=== PATIENT | male | born 1960 | race Caucasian/White ===

== ENCOUNTER 2017-06-23 07:01 | Outpatient (RCR) | payer OTHER, SELFPAY ==
[2017-06-23 08:49] LABS: Cholesterol 174 mg/dL (200); High Density Lipoprotein 40 mg/dL; Triglycerides 171 mg/dL; Very Low Density Lipoprotein 34 mg/dL (5-40)
== END 2017-06-23 07:02 | disposition home or self-care (01) ==
LOC: LAB 07:01
PROVIDERS: Family Provider Family Medicine; PCP Family Medicine; Visit Provider Family Medicine
DX: Z13.220 Encounter for screening for lipoid disorders (principal)
CPT/HCPCS: 36415; 80061

== ENCOUNTER → 2018-09-14 10:03 | Outpatient (CLI) | payer OTHER, SELFPAY ==
--- NOTE | 2018-09-14 10:28 | RAD_ITS ---
HISTORY: NECK PAIN COMPARISON: 05/17/2011 FINDINGS: XR Spine Cervical 2 views Mild straightening of the cervical spine. Cervical vertebra are normal in height. No fracture or suspicious bony lesion. C4-5 through C6-7 disc space narrowing accompanied by anterior endplate spurring. Disc space narrowing has progressed compared to previous. Posterior elements appear intact. No spondylolisthesis. RAD/Cerv Spine 2 or 3 Views IMPRESSION: 1. C4-5 through C6-7 degenerative disc disease and spondylosis with progression of degenerative change compared to the 2011 exam. 2. No acute disease. at 0734 Reported and signed by: Abundio Hoang MD Electronically Signed: Abundio Hoang, at 7:33 EDT Tel , Service support ,
== END ==
PROVIDERS: Family Provider Family Medicine; PCP Family Medicine; Referring Provider Anesthesiology Pain Medicine; Visit Provider Anesthesiology Pain Medicine
DX: M54.2 Cervicalgia (principal)
CPT/HCPCS: 72040

== ENCOUNTER → 2018-10-10 | Outpatient (CLI) | payer OTHER, SELFPAY ==
[2017-08-01 09:10] VITALS: BMI 24.9
[2018-10-10 12:24] LABS: Color, Urine Yellow (Yellow); Glucose, Dipstick Normal (Normal); Ketone-Dipstick Negative (Negative); Leukocyte Esterase-Dipstick Negative /ul (Negative); Nitrite-Dipstick Negative (Negative); Occult Blood-Urine Negative /ul (Negative); Protein-Dipstick Negative (Negative); Urine Clarity Clear (Clear); Urine Urobilinogen Normal (Normal)
[2018-10-10 12:37] LABS: Urine Bilirubin Dipstick 1 mg/dL (Negative)
== END | disposition home or self-care (01) ==
LOC: LAB 07:41 → LAB.FUTURE 10-12 06:08
PROVIDERS: Family Provider Family Medicine; PCP Family Medicine; Referring Provider Family Medicine; Visit Provider Family Medicine
DX: R35.1 Nocturia (principal)
CPT/HCPCS: 81002

== ENCOUNTER → 2018-10-13 | Outpatient (CLI) | payer OTHER, SELFPAY ==
[2017-08-01 09:10] VITALS: BMI 24.9
[2018-10-13 11:23] LABS: PSA,Total - Annual Screen 0.92 ng/mL (0.00-4.00)
== END | disposition home or self-care (01) ==
LOC: LAB 10:38
PROVIDERS: Family Provider Family Medicine; PCP Family Medicine; Referring Provider Family Medicine; Visit Provider Family Medicine
DX: R35.1 Nocturia (principal)
CPT/HCPCS: 36415; 84153; G0103

== ENCOUNTER → 2018-10-26 | Outpatient (CLI) | payer OTHER, SELFPAY ==
--- NOTE | 2018-10-26 15:37 | MRI_ITS ---
STUDY: MRI CERVICAL SPINE WITHOUT CONTRAST REASON FOR EXAM: Male, 57 years old. Neck pain radiating to right arm TECHNIQUE: Standardized fat and water weighted pulse sequences were obtained in the sagittal and axial planes. COMPARISON: CT of the cervical spine May 17, 2011 FINDINGS: Normal foramen magnum and brainstem-cervical cord junction. Normal craniovertebral junction. Normal anterior atlantoaxial articulation. Normal odontoid process. Normal cervical lordosis. Normal vertebral bodies and posterior osseous elements. C2-3: Normal endplates. Normal disc height, signal and morphology. Normal central canal and intervertebral neural foramina. C3-4: Normal endplates. Normal disc height, signal and morphology. Normal central canal and intervertebral neural foramina. C4-5: Mild endplate spurring.. Normal disc height, signal and morphology. Normal central canal. Moderate to severe bilateral neuroforaminal stenosis secondary to bony hypertrophy. C5-6: Minor endplate spurring.. Normal disc height, signal and minor bulging disc osteophyte complex. Normal central canal. Moderate right neuroforaminal encroachment secondary to bony hypertrophy Moderate to severe left neuroforaminal stenosis secondary to bony hypertrophy C6-7: Normal endplates. Normal disc height, signal and minor bulging disc osteophyte complex.. Normal central canal. Mild right neuroforaminal stenosis secondary to bony hypertrophy and moderate to severe narrowing on the left. C7-T1: Normal endplates. Normal disc height, signal and morphology. Normal central canal. Normal bilateral neuroforamina Normal cervical cord. Normal visualized soft tissue structures. MRI/Spine Cervical (Routine) IMPRESSION: No evidence for acute fracture or subluxation.. Spondylosis and multilevel neuroforaminal stenosis secondary to bony hypertrophy Electronically Signed: Silver Griffin MD at 17:20 EDT , Service support ,
== END | disposition home or self-care (01) ==
PROVIDERS: Family Provider Family Medicine; PCP Family Medicine; Referring Provider Anesthesiology Pain Medicine; Visit Provider Anesthesiology Pain Medicine
DX: M54.2 Cervicalgia (principal); M79.603 Pain in arm, unspecified
CPT/HCPCS: 72141

== ENCOUNTER → 2019-02-12 | Outpatient (CLI) | payer OTHER, SELFPAY ==
[2019-02-12 09:06] LABS: Vitamin B12 1148 pg/mL (211-911); Vitamin D,25 Hydroxy 29.8 ng/mL (29.95-100.01)
== END | disposition home or self-care (01) ==
PROVIDERS: Family Provider Family Medicine; PCP Family Medicine; Referring Provider Family Medicine; Visit Provider Family Medicine
DX: E55.9 Vitamin D deficiency, unspecified (principal); E53.8 Deficiency of other specified B group vitamins
CPT/HCPCS: 36415; 82306; 82607

== ENCOUNTER → 2019-05-04 07:31 | Outpatient (CLI) | payer OTHER, SELFPAY ==
[2017-08-01 09:10] VITALS: BMI 24.9
[2019-05-04 09:36] LABS: Absolute Lymphocyte Count 1.39 X10^3/uL (0.83-4.51); Absolute Neutrophil Count 3.5 X10^3/uL (2.0-7.7); Basophil# 0.04 X10^3/uL; Basophil% 0.7 % (0-1); Eosinophil# 0.32 X10^3/uL; Eosinophils% 5.7 % (0-5); Hematocrit 44.5 % (40-54); Hemoglobin 14.7 g/dL (13.0-16.5); Lymphocyte # 1.39 X10^3/ul (4.0); Lymphocyte % 24.9 % (19-41); Mean Corpuscular Hgb 31.8 pg (27.0-32.0); Mean Corpuscular Volume 96.3 fL (80-94); Mean Platelet Vol. 10.7 fl (6.2-12.0); Monocyte# 0.35 X10^3/uL; Monocyte% 6.3 % (0-10); NRBC Flagged by Analyzer 0 % (0-5); Neutrophil # 3.48 X10^3/uL (2.7-7.7); Neutrophil % 62.2 % (47-70); Platelet Count 226 K/mm3 (150-450); Red Blood Count 4.62 M/mm3 (4.6-6.2); White Blood Count 5.6 K/mm3 (4.4-11.0)
[2019-05-04 09:54] LABS: Cholesterol 173 mg/dL (200); Glucose 89 mg/dL (74-106); High Density Lipoprotein 39 mg/dL; Triglycerides 85 mg/dL; Very Low Density Lipoprotein 17 mg/dL (5-40)
[2019-05-04 10:00] LABS: Vitamin D,25 Hydroxy 42.6 ng/mL (29.95-100.01)
== END ==
PROVIDERS: Family Provider Family Medicine; PCP Family Medicine; Referring Provider Family Medicine; Visit Provider Family Medicine
DX: D72.829 Elevated white blood cell count, unspecified (principal); E55.9 Vitamin D deficiency, unspecified; E78.5 Hyperlipidemia, unspecified
CPT/HCPCS: 36415; 80061; 82306; 82947; 85025

== ENCOUNTER → 2019-11-16 10:01 | Outpatient (CLI) | payer OTHER, SELFPAY ==
[2017-08-01 09:10] VITALS: BMI 24.9
[2019-11-16 11:28] LABS: PSA,Total- Diagnostic 0.88 ng/mL (0.0-4.0)
== END ==
PROVIDERS: PCP Family Medicine; Referring Provider Family Medicine; Visit Provider Family Medicine
DX: R39.11 Hesitancy of micturition (principal)
CPT/HCPCS: 36415; 84153

== ENCOUNTER → 2020-04-04 12:49 | Outpatient (CLI) | payer OTHER, SELFPAY ==
--- NOTE | 2020-04-04 12:57 | MRI_ITS ---
STUDY: MRI CERVICAL SPINE WITH AND WITHOUT CONTRAST REASON FOR EXAM: Male, 59 years old. RIGHT neck pain x 15years with progressing severity TECHNIQUE: Standardized fat and water weighted pulse sequences were obtained in the sagittal and axial following administration of 17ml Dotarem via IV. COMPARISON: 10/26/2018. FINDINGS: Quality: Adequate. Multiple sequences are degraded by patient motion. Normal foramen magnum and brainstem-cervical cord junction. Normal craniovertebral junction. Normal anterior atlantoaxial articulation. Normal odontoid process. Normal cervical lordosis. Normal vertebral bodies and posterior osseous elements. C2-3: Normal endplates. Normal disc height, signal and morphology. Normal central canal and intervertebral neural foramina. C3-4: Normal endplates. Normal disc height, signal and morphology. Normal central canal. Mild foraminal encroachment due to spurring. C4-5: Normal endplates. Normal disc height, signal and morphology. Normal central canal. Moderate foraminal stenosis due to uncinate hypertrophy. C5-6: Normal endplates. Disc space narrowing. Mild, noncompressive spondylotic bar. Severe bilateral foraminal stenosis due to uncinate hypertrophy. C6-7: Normal endplates. Disc space narrowing. Normal central canal. Severe left foraminal stenosis due to uncinate hypertrophy. C7-T1: Normal endplates. Normal disc height, signal and morphology. Normal central canal and intervertebral neural foramina. No enhancing lesion. Normal cervical cord. Normal visualized soft tissue structures. Moderate mucosal thickening in the left maxillary sinus. MRI/Spine Cervical W/WO Contrast IMPRESSION: 1. Moderate to severe foraminal stenosis from C4-C5 through C6-C7. 2. Additional degenerative changes detailed above. 3. Mild chronic sinusitis. Electronically Signed: Maureen Verdin MD at 21:56 EDT Tel , Service support ,
== END ==
PROVIDERS: PCP Family Medicine; Referring Provider Anesthesiology Pain Medicine; Visit Provider Anesthesiology Pain Medicine
DX: M50.30 Other cervical disc degeneration, unspecified cervical region (principal); M50.123 Cervical disc disorder at C6-C7 level with radiculopathy
CPT/HCPCS: 72156; A9575

== ENCOUNTER → 2020-09-23 07:43 | Outpatient (CLI) | payer OTHER, SELFPAY ==
[2017-08-01 09:10] VITALS: BMI 24.9
--- NOTE | 2020-09-23 07:48 | RAD_ITS ---
STUDY: X-RAY - RIGHT FOOT CLINICAL: Male, 59 years old. DEFORMITY/PAIN OF 1ST METATARSAL X 2 YEARS TECHNIQUE: 3 view(s) of the foot. COMPARISON: None. FINDINGS: Normal talus, calcaneus, and tarsal bones. Small plantar posterior calcaneal enthesophytes. Normal visualized subtalar, talonavicular, calcaneocuboid, tarsal and tarsometatarsal articulations. Normal metatarsi. There is degenerative arthrosis of the metatarsophalangeal joint of the hallux . Normal tibial and fibular sesamoid bones. Normal interphalangeal joint of the great toe. Normal phalanges of the great toe. Normal second through fifth metatarsophalangeal joints. Normal interphalangeal joints and phalanges of the lesser toes. The soft tissue structures are unremarkable. RAD/Foot min 3 Views IMPRESSION: Severe first metatarsophalangeal joint arthrosis. Electronically Signed: Evan Villa MD at 11:37 EDT Tel , Service support ,
[2020-09-23 08:49] LABS: PSA,Total - Annual Screen 1.02 ng/mL (0.00-4.00)
[2020-09-25 10:00] LABS: Vitamin D,25 Hydroxy 47.7 ng/mL
== END ==
PROVIDERS: PCP Family Medicine; Referring Provider Family Medicine; Visit Provider Family Medicine
DX: M79.671 Pain in right foot (principal); Z12.5 Encounter for screening for malignant neoplasm of prostate; E55.9 Vitamin D deficiency, unspecified
CPT/HCPCS: 36415; 73630; 82306; 84153; G0103

== ENCOUNTER → 2021-01-20 08:52 | Outpatient (CLI) | payer OTHER, SELFPAY ==
[2021-01-20 09:24] LABS: Absolute Lymphocyte Count 1.93 X10^3/uL (0.83-4.51); Absolute Neutrophil Count 4.8 X10^3/uL (2.0-7.7); Basophil# 0.05 X10^3/uL; Basophil% 0.7 % (0-1); Eosinophil# 0.16 X10^3/uL; Eosinophils% 2.1 % (0-5); Hemoglobin 14.6 g/dL (13.0-16.5); Lymphocyte # 1.93 X10^3/ul (0.83-4.51); Lymphocyte % 25.9 % (19-41); Mean Corpuscular Volume 97.3 fL (80-94); Mean Platelet Vol. 10.7 fl (6.2-12.0); Monocyte% 6.7 % (0-10); NRBC Flagged by Analyzer 0 % (0-5); Neutrophil # 4.78 X10^3/uL (2.7-7.7); Neutrophil % 64.2 % (47-70); Platelet Count 202 K/mm3 (150-450); RBC Distribution Width CV 12.5 % (11.6-14.6); RBC Distribution Width SD 44.9 fl (35.1-43.9); Red Blood Count 4.42 M/mm3 (4.6-6.2); White Blood Count 7.5 K/mm3 (4.4-11.0)
[2021-01-20 09:43] LABS: ALB/GLOB Ratio 1.5 RATIO (0.9-2.4); AST(SGOT) 23 U/L (15-37); Alanine Aminotransfer ALT/SGPT 40 U/L (16-61); Albumin, Serum 4.2 g/dL (3.2-5.0); Alkaline Phosphatase 88 U/L (45-117); Anion Gap 5 (5-15); BUN 18 mg/dL (7-18); BUN/Creat Ratio 17.6 RATIO (10-20); Calcium,Total 8.6 mg/dL (8.5-10.1); Chloride 107 mmol/L (98-107); Cholesterol 152 mg/dL (200); Creatinine, Serum 1.02 mg/dL (0.70-1.30); EST Glomerular Filtration Rate 79 mL/min (>60); Est Glom Filt Rate - Afr Amer 96 mL/min (>60); Globulin 2.8 g/dL (2.2-4.2); Glucose 96 mg/dL (74-106); High Density Lipoprotein 49 mg/dL; Potassium 3.8 mmol/L (3.5-5.1); Sodium Level 140 mmol/L (136-145); Thyroid Stim Hormone (TSH) 2.64 uIU/mL (0.358-3.74); Triglycerides 77 mg/dL; Very Low Density Lipoprotein 15 mg/dL (5-40)
[2021-01-22 09:12] LABS: Vitamin B12 1114 pg/mL (211-911)
== END ==
LOC: MTLAB 08:56 → LAB 01-22 06:29
PROVIDERS: PCP Family Medicine; Referring Provider Family Medicine; Visit Provider Family Medicine
DX: R63.4 Abnormal weight loss (principal); R53.83 Other fatigue; E55.9 Vitamin D deficiency, unspecified
CPT/HCPCS: 36415; 80053; 80061; 82607; 84443; 85025

== ENCOUNTER 2021-08-09 15:54 | Outpatient (CLI) | payer OTHER, SELFPAY ==
--- NOTE | 2021-08-09 16:06 | RAD_ITS ---
STUDY: X-RAY - CERVICAL SPINE REASON FOR EXAM: Male, 60 years old. NECK PAIN TECHNIQUE: XR Spine Cervical 2 or 3 Views COMPARISON: None FINDINGS: Normal anterior atlantoaxial articulation. No acute findings of the odontoid process. There is straightening of the normal cervical lordosis. There is multi-level endplate spondylosis. There is multi-level degenerative disc disease with multilevel disc space narrowing. There is multi-level osseous foraminal stenosis. The soft tissue structures are unremarkable. RAD/Cerv Spine 2 or 3 Views IMPRESSION: There are degenerative changes as noted above. There is mild straightening of the normal cervical lordosis. This can suggest neck strain. Electronically Signed: Eugenio Henry MD at 15:45 EST ,
== END 2021-08-09 23:59 | disposition home or self-care (01) ==
PROVIDERS: PCP Family Medicine; Referring Provider Anesthesiology Pain Medicine; Visit Provider Anesthesiology Pain Medicine
DX: M54.2 Cervicalgia (principal)
CPT/HCPCS: 72040

== ENCOUNTER 2021-09-21 06:04 | Outpatient (CLI) | payer OTHER, SELFPAY ==
[2021-09-21 07:46] LABS: Cholesterol 157 mg/dL (200); Glucose 92 mg/dL (74-106); High Density Lipoprotein 39 mg/dL; Triglycerides 120 mg/dL; Very Low Density Lipoprotein 24 mg/dL (5-40)
== END 2021-09-21 23:59 | disposition home or self-care (01) ==
LOC: LAB 06:04
PROVIDERS: PCP Family Medicine; Referring Provider Family Medicine; Visit Provider Family Medicine
DX: Z13.1 Encounter for screening for diabetes mellitus (principal); Z13.220 Encounter for screening for lipoid disorders
CPT/HCPCS: 36415; 80061; 82947

== ENCOUNTER → 2021-10-30 | Outpatient (CLI) | payer OTHER, SELFPAY ==
[2021-10-30 16:04] LABS: Anion Gap 4 (5-15); BUN 15 mg/dL (7-18); BUN/Creat Ratio 15.9 RATIO (10-20); Calcium,Total 8.7 mg/dL (8.5-10.1); Chloride 108 mmol/L (98-107); Creatinine, Serum 0.94 mg/dL (0.70-1.30); EST Glomerular Filtration Rate 86 mL/min (>60); Est Glom Filt Rate - Afr Amer 105 mL/min (>60); Glucose 81 mg/dL (74-106); Magnesium 2.3 mg/dL (1.6-2.6); Sodium Level 141 mmol/L (136-145)
== END | disposition home or self-care (01) ==
LOC: LAB.FUTURE 14:43 → LAB 10-31 07:07
PROVIDERS: PCP Family Medicine; Visit Provider Family Medicine
DX: R25.2 Cramp and spasm (principal)
CPT/HCPCS: 36415; 80048; 83735

== ENCOUNTER → 2022-10-21 | Outpatient (CLI) | payer OTHER, SELFPAY ==
[2022-10-21 07:58] LABS: Absolute Lymphocyte Count 1.62 X10^3/uL (0.83-4.51); Absolute Neutrophil Count 2.9 X10^3/uL (2.0-7.7); Basophil# 0.06 X10^3/uL; Basophil% 1.1 % (0-1); Eosinophil# 0.41 X10^3/uL; Eosinophils% 7.6 % (0-5); Hematocrit 43.3 % (40-54); Hemoglobin 14.4 g/dL (13.0-16.5); Lymphocyte # 1.62 X10^3/ul (0.83-4.51); Lymphocyte % 30.2 % (19-41); Mean Corp Hgb Conc 33.3 g/dL (32-36); Mean Corpuscular Hgb 31.6 pg (27.0-32.0); Mean Corpuscular Volume 95.2 fL (80-94); Mean Platelet Vol. 10.3 fl (6.2-12.0); Monocyte# 0.39 X10^3/uL; Monocyte% 7.3 % (0-10); NRBC Flagged by Analyzer 0 % (0-5); Neutrophil # 2.87 X10^3/uL (2.7-7.7); Neutrophil % 53.4 % (47-70); Platelet Count 203 K/mm3 (150-450); RBC Distribution Width CV 12.2 % (11.6-14.6); RBC Distribution Width SD 42.7 fl (35.1-43.9); Red Blood Count 4.55 M/mm3 (4.6-6.2); White Blood Count 5.4 K/mm3 (4.4-11.0)
[2022-10-21 08:22] LABS: Vitamin D,25 Hydroxy 41.6 ng/mL
[2022-10-21 08:24] LABS: ALB/GLOB Ratio 1.4 RATIO (0.9-2.4); AST(SGOT) 29 U/L (15-37); Alanine Aminotransfer ALT/SGPT 34 U/L (16-61); Alkaline Phosphatase 92 U/L (45-117); Anion Gap 4 (5-15); BUN 25 mg/dL (7-18); BUN/Creat Ratio 26.1 RATIO (10-20); Calcium,Total 8.9 mg/dL (8.5-10.1); Chloride 110 mmol/L (98-107); Cholesterol 172 mg/dL (200); Creatinine, Serum 0.96 mg/dL (0.70-1.30); EST Glomerular Filtration Rate 85 mL/min (>60); Est Glom Filt Rate - Afr Amer 102 mL/min (>60); Globulin 2.8 g/dL (2.2-4.2); Glucose 92 mg/dL (74-106); High Density Lipoprotein 43 mg/dL; Magnesium 2.3 mg/dL (1.6-2.6); Protein, Total 6.8 g/dL (6.4-8.2); Sodium Level 143 mmol/L (136-145); Triglycerides 99 mg/dL; Very Low Density Lipoprotein 20 mg/dL (5-40)
== END | disposition home or self-care (01) ==
LOC: LAB 06:58
PROVIDERS: PCP Nurse Practitioner Family; Referring Provider Nurse Practitioner Family; Visit Provider Nurse Practitioner Family
DX: Z00.00 Encounter for general adult medical examination without abnormal findings (principal); E55.9 Vitamin D deficiency, unspecified; E61.2 Magnesium deficiency; E78.5 Hyperlipidemia, unspecified; Z12.5 Encounter for screening for malignant neoplasm of prostate
CPT/HCPCS: 36415; 80053; 80061; 82306; 83735; 84153; 85025; G0103

== ENCOUNTER 2023-01-13 21:33 | Emergency (ER) | payer OTHER, SELFPAY ==
[2023-01-13 21:35] VITALS: BP 119/85; PULSE 78; RESP 18; TEMP 36.4; O2SAT 98; BMI 24.6
--- NOTE | 2023-01-13 22:46 | EDS_ITS ---
HPI <Dr. Prudencio Cortez MD - Last Filed: 01/14/23 02:02> History of Present Illness Chief Complaint: Laceration Informant: patient Narrative Narrative: Patient sustained a laceration to the left lower leg accidentally while swinging a yard paint brush maker. Tetanus Immunization: Unknown [facility] <Dr. Prudencio Cortez MD - Last Filed: 01/14/23 02:02> PFSH Medical History Basal cell carcinoma Chronic neck pain Foraminal stenosis of cervical region Hx of nasal polyp Home Medications acyclovir 400 mg tablet 400 mg PO TID PRN 10/11/22 [History Last Taken Unknown] cholecalciferol (vitamin D3) 125 mcg (5,000 unit) capsule 125 mcg PO DAILY 10/11/22 [History Last Taken Unknown] diclofenac sodium 1 % topical gel (Arthritis Pain (diclofenac)) 2 g topical ONCE 10/11/22 [History Last Taken Unknown] methocarbamol 750 mg tablet 750 mg PO Q6H PRN 10/11/22 [History Last Taken Unknown] turmeric root extract 500 mg tablet 500 mg PO DAILY 10/11/22 [History Last Taken Unknown] Allergy/AdvReac Type Severity Reaction Status Date / Time No Known Allergies Allergy Verified 01/13/23 21:35 Family History (Updated 10/11/22 @ 12:40 by Yumiko Manjarrez) Father Glioblastoma CAD (coronary artery disease) Surgical History (Updated 10/11/22 @ 12:39 by Yumiko Manjarrez) History of colonoscopy History of nasal septoplasty History of open reduction and internal fixation (ORIF) procedure Hx of tonsillectomy Social History household members: spouse current occupational status: employed Smoking Status: Former smoker ROS <Dr. Prudencio Cortez MD - Last Filed: 01/14/23 02:02> ROS ED Constitutional Constitutional ED: Denies chills or fever(s) Musculoskeletal Musculoskeletal: Reports extremity pain; Denies neck pain Integumentary Reports wounds; Denies Abrasions or rash Neurologic Neurologic: Denies paresthesias or weakness EXAM <Dr. Prudencio Cortez MD - Last Filed: 01/14/23 02:02> Physical Exam Const Vital Signs: 01/13/23 21:35 Temperature 97.6 F L Temperature Source Temporal Pulse Rate 78 Respiratory Rate 18 Blood Pressure 119/85 H Blood Pressure Mean 96 Pulse Ox 98 Oxygen Delivery Method Room Air Positive well nourished and well developed General Appearance ED: well developed and NAD Neck full ROM and supple Back/Spine normal ROM and normal to inspection Extremity full ROM Extremity Narrative: 2.8 cm curvilinear full-thickness but just beyond the dermis laceration anterior left lower leg proximal to the ankle. No other structures exposed, no bony tenderness, full range of motion of the ankle. Minimal bleeding. General Extremety ED: Negative for weight-bearing difficulty General Extremity: Negative for weight-bearing difficulty Neuro oriented x3, no focal motor deficits and no sensory deficits noted Sensorium / Orientation: alert Psych mental status grossly normal and thought process normal Skin Skin Narrative: LLE lac, see above for details. Rashes: no rashes <Dr. Ian Blanco MD - Last Filed: 01/13/23 23:02> Physical Exam Const Vital Signs: 01/13/23 21:35 Temperature 97.6 F L Temperature Source Temporal Pulse Rate 78 Respiratory Rate 18 Blood Pressure 119/85 H Blood Pressure Mean 96 Pulse Ox 98 Oxygen Delivery Method Room Air MDM <Dr. Prudencio Cortez MD - Last Filed: 01/14/23 02:02> MDM MDM Narrative Medical decision making narrative: Laceration repaired see the procedure note. Given appropriate discharge instructions regarding care and suture removal. Procedures <Dr. Ian Blanco MD - Last Filed: 01/13/23 23:02> Other Procedures Procedure(s): Patient has a laceration distal anterior leg. Curvilinear and gaping. Wound was anesthetized with 1% lidocaine by local infiltration. Wound was cleansed with surgical eyes and normal saline. 7 simple interrupted sutures placed using 4-0 Ethilon with good cosmesis hemostasis. Total length of laceration 2.8 cm. Discharge Plan Triage Chief Complaint: Laceration ED Provider: Prudencio Cortze Dx/Rx/DC Orders Clinical Impression: [id number] (DTP) vaccination, Laceration of left lower leg Instructions: Tdap Vaccine, ED Laceration: All Closures Prescriptions: No Action acyclovir 400 mg tablet 400 mg PO TID PRN diclofenac sodium [Arthritis Pain (diclofenac)] 1 % gel 2 g topical ONCE Rx Instructions: apply to single elbow, wrist or hand; for hand includes palm/fingers/back of hand methocarbamol 750 mg tablet 750 mg PO Q6H PRN turmeric root extract 500 mg tablet 500 mg PO DAILY cholecalciferol (vitamin D3) 125 mcg (5,000 unit) capsule 125 mcg PO DAILY Primary Care Provider: Shelia Jimenez Referrals: Shelia Jimenez, PHYSICIAN'S AIDE-C [Primary Care Provider] - 10 Day for suture removal Disposition Disposition: Home, Self Care Discharge Date/Time: 01/13/23 23:42
[2023-01-13] MEDS: Diphth,Pertuss(Acell),Tet Vac 0.5 ML Vial IM (23:18)
== END 2023-01-13 23:42 | disposition home or self-care (01) ==
PROVIDERS: Emergency Provider Emergency Medicine; PCP Nurse Practitioner Family; Visit Provider Emergency Medicine
DX: S81.812A Laceration without foreign body, left lower leg, initial encounter (principal); Z87.891 Personal history of nicotine dependence; Z23 Encounter for immunization; W27.1XXA Contact with garden tool, initial encounter
CPT/HCPCS: 12002; 90471; 90715; 99284

== ENCOUNTER 2023-04-21 16:30 | Outpatient (RCR) | payer OTHER, SELFPAY ==
--- NOTE | 2022-10-22 13:57 | HP.PTEVAL_ITS ---
Patient's Visit Information BRIANA BURTON is a 61 year old M referred to Physical Therapy by JEFF Paul with a diagnosis of neck pain. Date of Evaluation: 10/17/22 Physical Therapist: Cory Romero DPT - Visit Plan Frequency: 2x /Week Duration: 4 Weeks Plan: Start with DN throughout cervical spine, progress some light cervical exercises to reduce stress with gym exercises. - Subjective Pt. is here today for his initial evaluation with diagnosis of neck pain. Pt. reports having cervical spine pain for a few years now, going on 10 years. He reports being told that he would need surgery, but has been trying to avoid this. He has changed his diet and exercises which has helped. He is here today with questions about exercises and DN to reduce his symptoms. He reports any lifting seems to increase his symptoms. Increases pain: prolonged sitting, lifting, exercises. He has done injections that were initially helping, but has been less and less helpful more recently. Pt. is hopeful to reduce symptoms in order to tolerate sitting and standing at work. - Pain Cervical spine Pain Intensity (Out of 10): 2 Pain Intensity Range: 0, 6 - Objective POSTURE: Pt. has slight FH posture. Pt. has normal shoulder positioning. Pt. is able to sitting to good posture. PALPATION: Pt. has tenderness along B cervical erector spinea and B UT regions. This does trail into his levator scapulae as well. ROM: CERVICAL SPINE: flexion min loss increase nW, ext min loss increase NW, SB min loss NE, rotation min loss increase NW B. Pt .has full B shoulder ROM without increase in symptoms. MMT: Pt. has full strength of B shoulders without increase in symptoms. Pt. does have some pain with UT testing and with scapular testing 4+/5 through the rest. - Balance/Special Test Scores Oswestry Neck Score: 21 - Goals Goal 1:: LTG: Pt. to be I with HEP. Goal Time Frame: 4-6 Weeks Goal 2:: STG: Pt. to tolerate all work activities with out increase in neck pain. Goal Time Frame: 2-4 Weeks Goal 3:: LTG: Pt. to sleep without increase in symptoms of neck and scapular region. Goal Time Frame: 4-6 Weeks Goal 4:: LTG: pt. to resume and tolerate all gym exercises without increase in symptoms. Goal Time Frame: 4-6 Weeks - Rehabilitation Potential Physical Therapy Diagnosis: Pt. has signs and symptoms consistent with cervical spine pain. He has some radicular symptoms in to his UT region, but for the most part he has pain in his neck that is worsened with activities that cause stress to his spine. He would benefit from PT to reduce muscle tightness and work on progressive tolerance to exercises. Rehabilitation Potential: Good - Anticipated Interventions Patient/Client Instruction: Educate patient on: Condition, Plan of Care, Risk Factors, Benefits of Fitness Program For the Purpose of:: To foster healthy habits, To improve decision making, To facilitate caregiver knowledge, To improve self management, To prevent re- injury, To improve ability to perform tasks related to life management, To improve tolerance to ADL's Therapeutic Exercise to Include: Strength training, Power training, Passive ROM, Active ROM, Stefani Exercises, Scapular Strength/Stabilization For the Purpose of:: To decrease pain, To decrease swelling/inflammation, To increase ROM, To improve nutrient delivery to tissue Manual Therapy Techniques to Include: Mobilization, Passive ROM, Functional dry needling, Soft tissue mobilization For the Purpose of:: To decrease pain, To decrease swelling/inflammation, To increase ROM, To improve nutrient delivery to tissue, To increase oxygenation perfusion, To improve muscle performance and motor function Thank you for the opportunity to evaluate your patient. For Medicare and Medicare HMO plans, please review the plan of care and approve it. It will need to be FAXED BACK to us at [phone] for Medicare purposes. For Medicare only, by signing this I certify the plan of care. Please let me know if there are questions or concerns regarding this plan of care. Physician Signature: Date:
== END 2023-04-21 19:00 | disposition home or self-care (01) ==
LOC: PT 16:30
PROVIDERS: PCP Nurse Practitioner Family; Visit Provider Nurse Practitioner Family
DX: M48.02 Spinal stenosis, cervical region (principal); M54.2 Cervicalgia; G89.29 Other chronic pain
CPT/HCPCS: 97110; 97140; 97161

== ENCOUNTER 2023-06-28 09:13 | Emergency (ER) | payer OTHER, SELFPAY ==
[2023-06-28 09:14] VITALS: BP 135/88; PULSE 76; RESP 18; TEMP 36.4; O2SAT 98; BMI 23.5
[2023-06-28] MEDS: Fluorescein 1 MG STRIP 1 STRIP EACH EYE (09:55)
[2023-06-28] MEDS: Tetracaine 0.5% Ophthalmic Bottle 1 DRP EACH EYE (09:55)
--- OUTSIDE RECORDS SUMMARY | 2023-06-28 10:04 | XMS RPT_ITS | CCD ---
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 Role Phone Derrick Craig (Hist) Primary Care Provider Un available HANK PRICE CNP Attending HANK Scales CNP Primary Care HANK Scales CNP Admitting Unavailabl e Allergies Allergy Classification Reported Allergen(s) Allergy Type Date of Onset Reaction(s) Facility (2 sources) Environmental allergies [Other] Propensity to adverse reactions [facility] Medications Completed/Discontinued Medications Medication Drug Class(es) Dates Sig (Normalized) Sig (Original) [id number] 200 actuat albuterol 0.09 mg/actuat metered dose inhaler (1 source) beta2-Adrenergic Agonist Start: 08-15-2008 take 2 puff(s) by inhalation every four hours as needed for cough albuterol sulfate(PROVENTIL HFA 90 MCG/ACTUATION AEROSOL INHALER) 2 puffs every 4 hours as needed for cough, wheezing or shortness of breath. 1 2 08/15/2008 Active Problems Active Problems Problem Classification Problem Date Documented Date Episodic/Chronic External cause codes: Natural/environment (1 source) Bitten or stung by nonvenomous insect and other nonvenomous arthropods, initial encounter; Translations: [Other, multiple, and unspecified sites, insect bite, nonvenomous, without mention of infection(919.4)] Onset: 01-07-2008 01-07-2008 Other and unspecified benign neoplasm (2 sources) Dysplastic nevus of trunk; Translations: [Atypical nevus of back] Onset: 01-31-2013 01-31-2013 Other connective tissue disease (3 sources) Enthesopathy of hip region; Translations: [Other specified enthesopathies of unspecified lower limb, excluding foot] Onset: 08-17-2007 08-17-2007 Episodic Other upper respiratory disease (2 sources) Allergic rhinitis; Translations: [Allergic rhinitis, unspecified] Onset: 03-02-2007 03-02-2007 Chronic Spondylosis; intervertebral disc disorders; other back problems (5 sources) Brachial neuritis; Translations: [Neck pain] Onset: 09-17-2006 05-16-2009 Episodic Past or Other Problems Problem Classification Problem Date Documented Da te Episodic/Chronic Allergic reactions (2 sources) Solar degeneration; Translations: [Other skin changes due to chronic exposure to nonionizing radiation] Onset: 01-01-2012 01-01-2012 Episodic E Codes: Natural/environment (1 source) Bitten or stung by nonvenomous insect and other nonvenomous arthropods, initial encounter; Translations: [Insect bite, nonvenomous, of other, multiple, and unspecified sites, without mention of infection] Onset: 01-07-2008 01-07-2008 Episodic Melanomas of skin (2 sources) History of malignant melanoma of the skin; Translations: [Personal history of malignant melanoma of skin] Onset: 10-07-2007 10-07-2007 Episodic Other and unspecified benign neoplasm (2 sources) Melanocytic nevus of trunk; Translations: [Melanocytic nevi of trunk] Onset: 05-04-2010 05-04-2010 Episodic Other and unspecified benign neoplasm (4 sources) Dysplastic nevus of skin; Translations: [Melanocytic nevi, unspecified] Onset: 01-31-2013 01-31-2013 Episodic Other and unspecified benign neoplasm (2 sources) Melanocytic nevus of lower limb; Translations: [Melanocytic nevi of unspecified lower limb, including hip] Onset: 05-21-2010 12-30-2011 Episodic Other and unspecified benign neoplasm (2 sources) Melanocytic nevus of upper limb; Translations: [Melanocytic nevi of unspecified upper limb, including shoulder] Onset: 05-04-2010 05-04-2010 Episodic Other and unspecified benign neoplasm (2 sources) Melanocytic nevus of scalp; Translations: [Melanocytic nevi of scalp and neck] Onset: 05-04-2010 05-04-2010 Episodic Other and unspecified benign neoplasm (2 sources) Dysplastic nevus of trunk; Translations: [Melanocytic nevi of trunk] Onset: 01-31-2013 01-31-2013 Episodic Other inflammatory condition of skin (2 sources) Pruritus of skin; Translations: [Pruritus, unspecified] Onset: 01-07-2008 01-07-2008 Episodic Other lower respiratory disease (2 sources) Dyspnea; Translations: [Shortness of breath] Onset: 03-16-2007 03-16-2007 Episodic Other non-traumatic joint disorders (2 sources) Arthralgia of the pelvic region and thigh; Translations: [Pain in unspecified hip] Onset: 09-06-2008 09-06-2008 Episodic Other skin disorders (2 sources) Actinic keratosis; Translations: [Actinic keratosis] Onset: 05-04-2010 05-04-2010 Episodic Other skin disorders (2 sources) Senile lentigo; Translations: [Other melanin hyperpigmentation] Onset: 05-04-2010 05-04-2010 Episodic Other skin disorders (2 sources) Scar; Translations: [Scar conditions and fibrosis of skin] Onset: 05-04-2010 05-04-2010 Episodic Other skin disorders (2 sources) Other seborrheic keratosis; Translations: [Seborrheic keratosis] Onset: 05-04-2010 05-04-2010 Episodic Other skin disorders (2 sources) Disorder of skin; Translations: [Hypertrophic disorder of the skin, unspecified] Onset: 10-07-2007 10-07-2007 Episodic Viral infection (2 sources) Molluscum contagiosum infection; Translations: [Molluscum contagiosum] Onset: 08-27-2011 08-27-2011 Episodic Results Test Name Value Interpretation Reference Range Facil ity Encounters Encounter Date Encounter Type Care Provider Facility Start: 11-07-2022 End: 11-07-2022 ambulatory HANK [facility] Start: 11-07-2022 Encounter for genera l adult medical examination without abnormal findings HANK [facility] Start: 02-05-2013 End: 02-05-2013 Sharmaine Hendrix (Hist) [facility] Procedures Date Procedure Procedure Detail Performing Clinician Start: 10-28-2012 Colonoscopy LINA Pierson Start: 11-15-2002 CONVERTED SURGICAL PATHOLOGY A Jitendra Pierson Work Phone: Plan of Treatment Date Care Activity Detail Author Start: 10-28-2022 Colonoscopy COLONOSCOPY [facility] Start: 10-28-2022 Screening for malign ant neoplasm of colon [facility] Start: 05-30-2022 Urine microalbumin profile DTAP,TDAP ,TD (3 - Td) [facility] Start: 02-14-2021 Influenza vaccination INFLUENZA (Sea son Ended) [facility] Start: 02-15-2020 Influenza vaccination INFLUENZA (#1) [facility] Start: 11-18-2017 LIPID SCREEN LIPID SCREEN [facility] Start: 10-28-2017 PROSTATE CANCER SCRE ENING DISCUSSION PROSTATE CANCER SCREENING DISCUSSION [facility] Start: 11-19-2015 DIABETES SCREEN DIABETES SCREEN [facility] Start: 2010 Screening for malign ant neoplasm of colon [facility] Start: 2010 SHINGRIX VACCINE (1 of 2) HUNT GRIX VACCINE (1 of 2) [facility] Start: 1978 HEPATITIS C SCREENING HEPATITIS C SC REENING [facility] Start: 1978 HIV SCREENING HIV SCREENING [facility] Start: 1972 Adult depression scr eening assessment DEPRESSION SCREENING [facility] Immunizations Immunization Date Immunization Notes Care Provider Fa cherylty 05-30-2012 tetanus toxoid, redu adria diphtheria toxoid, and acellular pertussis vaccine, adsorbed [facility] 03-16-2010 influenza virus vacc ine, unspecified formulation [facility] 06-21-2005 hepatitis B vaccine, adult dosage [facility] 06-16-2002 diphtheria and tetan us toxoids, adsorbed for pediatric use NA Cervino [facility] Payers Date Payer Category Payer Unknown [facility] ZZZHEALTHSMART PREFERRED [id number] 2011-2013 PPO [id number] 2002 Unknown [employer] [place] [employer] BCBS [address] [id number] 2002-2003 [address] [place] [address] Indemnity [id number] 1999 Unknown [place] PREF ERRED PRIMARY PLUSPOS [id number] 1999-2004 POS [id number] Social History Date Type Detail Facility Tobacco smoking stat [facility] Unknown if ever smoked [facility] Start: 1960 Sex Assigned At Not on file [facility] Start: 02-03-2013 Tobacco smoking stat [facility] Former smoker [facility] Start: 02-03-2013 Tobacco use and exposure Never used [facility] Start: 02-03-2013 Alcohol intake Current drinke r of alcohol (finding) [facility] Note 02-05-2013 Telephone Encounter - Derrick Craig - 02/05/2013 5:24 PM EDTTelephone Encounter - Jaylene Rodrigez Lpn - 02/05/2013 11:29 AM EDT Note Date & Type Note Facility 02-05-2013 Miscellaneous Notes The following approved medication requests have been transmitted electronically. Signed Prescriptions Disp Refills diclofenac, EC, (VOLTAREN) 75 mg EC tablet 60 tablet 3 Sig: Take 1 tablet by mouth twice daily as needed (for pain and inflammation). Authorizing Provider: DERRICK CRAIG MD Patient phones requesting refills as follows: Pending Prescriptions Disp Refills DICLOFENAC SODIUM 75 MG TABLET,DELAYED RELEASE 60 tablet 3 Sig: Take 1 tablet by mouth twice daily as needed (for pain and inflammation). Please review and advise. Jaylene Rodrigez LPN Pt states scripts before he used them all since its just PRN Patient has been identified by name and date of : Yes RX INSTRUCTIONS: Patient aware RX will be sent to pharmacy. No need to notify patient. Jaylene Rodrigez LPN documented in this encounter [facility] History of Past illness Narrative 05-04-2010 Note Date & Type Note Facility documented as of this encounter (statuses as of 10/05/2020) [facility] Evaluation note Note Date & Type Note Facility documented in this encounter [facility] History of Past Illness Problem Noted Date Resolved Date Actinic Keratoses (Premalignant AK's) 05/04/2010 05/04/2010 Scars (Cryosurgical) 05/04/2010 05/04/2010 Neoplasm Uncertain Behavior (NUB) of skin 200901/01/2012 Skin tags 04/04/2010 01/01/2012 SEBORRHEIC KERATOSIS INFLAMED 10/07/2007 SEBORRHEIC KERATOSIS NOS 10/07/2007 010 BENIGN LAKHWINDER SKIN EAR 07/29/2006 01/01/2012 UNCERTAIN BEHAV NEOPL SKIN 06/13/200605/04 BENIGN LAKHWINDER SKIN TRUNK 06/13/2006 01/01/2012 BENIGN LAKHWINDER SKIN ARM 06/13/2006 01/01/2012 BENIGN LAKHWINDER SKIN LEG 06/13/2006 01/01/2012 BENIGN LAKHWINDER SKIN FACE NEC 06/13/2006 012 BENIGN LAKHWINDER SCALP/SKIN NECK 06/13/200612/31 SOLAR LENTIGINES///DYSCHROMIA OTHER 06/13/2006 01/01/2012 ACTINIC DAMAGE///CHR SOLAR SKIN DAMAGE NOS 06/1301/01/2012 SCAR & FIBROSIS OF SKIN 06/13/2006 01/01/20 12 Advance Directives No Advanced Directives Records FoundDocuments on File Type Date 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 Advance Directive(s) Summary Purpose Family History No Family History Records FoundNo Family History Records Found Additional Source Comments Source Comments (unrecognize d section and content) In the event this informatio n is protected by the Federal Confidentiality of Alcohol and Drug Abuse Patient Records regulations: The Federal rules restrict any use of the information to criminally investigate or prosecute any alcohol or drug abuse patient.[facility] the event this information is protected by the Federal Confidentiality of Alcohol and Drug Abuse Patient Records regulations: The Federal rules restrict any use of the information to criminally investigate or prosecute any alcohol or drug abuse patient.[facility] Reason for Visit (unrecogniz ed section and content) (unrecognized sect ion and content) No Status Records FoundNo Status Records Found INFORMATION SOURCE (unrecogn ized section and content) DATE CREATED AUTHOR AUTHOR'S ORGANIZ ATION 11/22/2022 [facility] FOR RECORDS PERTAINING TO PATIENTS WHO ARE OR HAVE BEEN ENROLLED IN A CHEMICAL DEPENDENCY/SUBSTANCEABUSE PROGRAM, SOME INFORMATION MAY BE OMITTED. This clinical summary was aggregated from multiple sources. Caution should be exercised in using it in the provision of clinical care. This summary normalizes information from multiple sources, and as a consequence, information in this document may materially change the coding, format and clinical context of patient data. In addition, data may be omitted in some cases. CLINICAL DECISIONS SHOULD BE BASED ON THE PRIMARY CLINICAL RECORDS. [facility]. provides no warranty or guarantee of the accuracy or completeness of information in this document.
[2023-06-28] MEDS: Sulfacetamide Sodium 15ML OPTH.BTL 2 DRP OPHTHALMIC (10:14)
--- NOTE | 2023-06-28 10:59 | EX.ED.VIS.EY ---
HPI History of Present Illness Chief Complaint: Eye Problem Informant: patient Narrative Narrative: 62-year-old male states that yesterday he was cutting wood and went he felt like something got into his eye. He was rubbing it when he woke this morning and came to work he had a very red eye. States he feels like maybe there is something still in it. He denies any change in his vision. He wears glasses not contacts. No pain. He is not on blood thinners. PFSH PFSH Medical History Basal cell carcinoma Chronic neck pain Foraminal stenosis of cervical region Hx of nasal polyp Home Medications acyclovir 400 mg tablet 400 mg PO TID PRN 10/11/22 [History Last Taken Unknown] cholecalciferol (vitamin D3) 125 mcg (5,000 unit) capsule 125 mcg PO DAILY 10/11/22 [History Last Taken Unknown] diclofenac sodium 1 % topical gel (Arthritis Pain (diclofenac)) 2 g topical ONCE 10/11/22 [History Last Taken Unknown] methocarbamol 750 mg tablet 750 mg PO Q6H PRN 10/11/22 [History Last Taken Unknown] turmeric root extract 500 mg tablet 500 mg PO DAILY 10/11/22 [History Last Taken Unknown] Allergy/AdvReac Type Severity Reaction Status Date / Time No Known Allergies Allergy Verified 06/28/23 09:14 Family History Father Glioblastoma CAD (coronary artery disease) Surgical History History of colonoscopy History of nasal septoplasty History of open reduction and internal fixation (ORIF) procedure Hx of tonsillectomy Social History household members: spouse current occupational status: employed Smoking Status: Former smoker ROS ROS ED Constitutional Constitutional ED: Denies chills, fever(s) or weight loss Eyes Eyes: Reports other Details: Red left eye ; Denies change in vision or diplopia ENT ENT ED: Denies ear pain, rhinorrhea or sore throat Cardiovascular Cardiovascular: Denies chest pain, orthopnea, palpitations or racing heartbeat Respiratory/Chest Respiratory/Chest: Denies cough, dyspnea or orthopnea Gastrointestinal Gastrointestinal: Denies abdominal pain, diarrhea, nausea or vomiting Genitourinary Genitourinary ED: Denies dysuria, hematuria or urinary frequency Musculoskeletal Musculoskeletal: Denies arthralgias or myalgias Integumentary Denies abscess or rash Neurologic Neurologic: Denies headache(s) or weakness Psychiatric Psychiatric: Denies anxiety, depression, suicidal ideation or suicidal thoughts Endocrine Endocrinology: Denies polydipsia, polyphagia or polyuria Allergic/Immunologic Allergic/Immunologic ED: Denies mouth swelling, tongue swelling or urticaria EXAM Physical Exam Const Vital Signs: 06/28/23 09:14 Temperature 97.6 F L Temperature Source Temporal Pulse Rate 76 Respiratory Rate 18 Blood Pressure 135/88 H Blood Pressure Mean 103 Pulse Ox 98 Oxygen Delivery Method Room Air Positive well nourished and well developed General Appearance ED: well developed HEENT Reports normocephalic, head/scalp atraumatic and moist mucous membranes Eyes PERRL and EOMs intact bilaterally Eyes Narrative: There is evidence of subconjunctival medially and cephalad to the cornea. I do not see any obvious foreign body with eversion of the eyelids. There is no corneal abrasion with fluorescein staining. Extraocular movements are intact. No hyphema. No periorbital redness. Neck no lymphadenopathy, supple and no JVD Resp normal respiratory effort and clear to auscultation bilaterally Cardio regular rate, regular rhythm and no murmurs GI normal to inspection, nondistended, normoactive bowel sounds and non-tender Palpation: soft Back/Spine no CVA tenderness and normal ROM Extremity normal to inspection General Extremety ED: Negative for edema General Extremity: Negative for edema Neuro oriented x3 and CN's II-XII intact bilaterally Sensorium / Orientation: alert Motor Exam: strength 5/5 throughout Psych mental status grossly normal Mood & Affect: Negative for depressed or tearful Skin no rashes or lesions noted and no wounds MDM MDM MDM Narrative Medical decision making narrative: Patient I spoke at length regarding pathophysiology of the subconjunctival hemorrhage. I do not see a foreign body at this time. We talked about localized trauma and the risk of infection. Using shared decision making we will go ahead and place him on sulfacetamide drops. If he is not improving we will have him follow-up with ophthalmology. Discharge Plan Triage Chief Complaint: Eye Problem ED Provider: Daron White Dx/Rx/DC Orders Clinical Impression: Subconjunctival hemorrhage Instructions: ED Subconjunctival Hemorrhage Prescriptions: No Action acyclovir 400 mg tablet 400 mg PO TID PRN diclofenac sodium [Arthritis Pain (diclofenac)] 1 % gel 2 g topical ONCE Rx Instructions: apply to single elbow, wrist or hand; for hand includes palm/fingers/back of hand methocarbamol 750 mg tablet 750 mg PO Q6H PRN turmeric root extract 500 mg tablet 500 mg PO DAILY cholecalciferol (vitamin D3) 125 mcg (5,000 unit) capsule 125 mcg PO DAILY Primary Care Provider: Shelia Jimenez Referrals: Shelia Jimenez, IRRIGATION FLUME LAYER-C [Primary Care Provider] - Activity Restrictions/Additional Instructions: Please follow-up with your eye doctor if not improved. Eyedrops or 2 drops to the left eye every 6 hours x 5 days. Disposition Disposition: Home, Self Care Discharge Date/Time: 06/28/23 10:17
== END 2023-06-28 10:17 | disposition home or self-care (01) ==
LOC: ED 10:02
PROVIDERS: Emergency Provider Emergency Medicine; PCP Nurse Practitioner Family; Visit Provider Emergency Medicine
DX: H11.32 Conjunctival hemorrhage, left eye (principal); Z87.891 Personal history of nicotine dependence; X58.XXXA Exposure to other specified factors, initial encounter; Y93.89 Activity, other specified
CPT/HCPCS: 99283

== ENCOUNTER 2023-07-09 15:30 | Outpatient (RCR) | payer OTHER, SELFPAY ==
--- NOTE | 2023-09-25 09:22 | HP.PT.NRP ---
Patient Information Patient Information: BRIANA BURTON was seen in my office for initial evaluation on . The following Plan of Care was established for this patient: Last Seen Last Seen: This patient was last seen in our office 07/09/23. Pertinent comments regarding their Physical therapy will appear below: Pt. was seen for DN. Pt. has not been seen in several months and will be DC at this point in time. At this point I will be discontinuing this patient from physical therapy. I would be happy to see this patient again in the future if found appropriate by the physician. Thank you! Cory Romero, REYEST
== END 2023-07-09 19:00 | disposition home or self-care (01) ==
LOC: PT 15:30
PROVIDERS: PCP Nurse Practitioner Family; Visit Provider Nurse Practitioner Family
DX: M48.02 Spinal stenosis, cervical region (principal); M54.2 Cervicalgia; G89.29 Other chronic pain

== ENCOUNTER → 2023-07-23 | Outpatient (CLI) | payer OTHER, SELFPAY ==
--- OUTSIDE RECORDS SUMMARY | 2023-07-23 07:20 | XMS RPT_ITS | CCD ---
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 Phone Derrick Craig (Hist) Primary Care Provider Un available HANK PRICE CNP Attending HANK Scales CNP Primary Care HANK Scales CNP Admitting Unavailabl e Allergies Allergy Classification Reported Allergen(s) Allergy Type Date of Onset Reaction(s) Facility (2 sources) Environmental allergies [Other] Propensity to adverse reactions [facility] Medications Completed/Discontinued Medications Medication Drug Class(es) Dates Sig (Normalized) Sig (Original) [id number] 200 actuat albuterol 0.09 mg/actuat metered dose [...] Facility Start: 11-07-2022 End: 11-07-2022 ambulatory HANK [facility] Start: 11-07-2022 Encounter for genera l adult medical examination without abnormal findings HANK [facility] Start: 02-05-2013 End: 02-05-2013 Sharmaine Hendrix (Hist) [facility] Procedures Date Procedure Procedure Detail Performing Clinician Start: 10-28-2012 Colonoscopy LINA Pierson Start: 11-15-2002 CONVERTED SURGICAL PATHOLOGY A Jitendra Pierson Work Phone: Plan of Treatment Date Care Activity Detail Author Start: 10-28-2022 Colonoscopy COLONOSCOPY [facility] Start: 10-28-2022 Screening for malign ant neoplasm of colon [facility] Start: 05-30-2022 Urine microalbumin profile DTAP,TDAP ,TD (3 - Td) [facility] Start: 02-14-2021 Influenza vaccination INFLUENZA (Sea son Ended) [facility] Start: 02-15-2020 Influenza vaccination INFLUENZA (#1) [facility] Start: 11-18-2017 LIPID SCREEN LIPID SCREEN [facility] Start: 10-28-2017 PROSTATE CANCER SCRE ENING DISCUSSION PROSTATE CANCER SCREENING DISCUSSION [facility] Start: 11-19-2015 DIABETES SCREEN DIABETES SCREEN [facility] Start: 2010 Screening for malign ant neoplasm of colon [facility] Start: 2010 SHINGRIX VACCINE (1 of 2) HUNT GRIX VACCINE (1 of 2) [facility] Start: 1978 HEPATITIS C SCREENING HEPATITIS C SC REENING [facility] Start: 1978 HIV SCREENING HIV SCREENING [facility] Start: 1972 Adult depression scr eening assessment DEPRESSION SCREENING [facility] Immunizations Immunization Date Immunization Notes Care Provider Fa cherylty 05-30-2012 tetanus toxoid, redu adria diphtheria toxoid, and acellular pertussis vaccine, adsorbed [facility] 03-16-2010 influenza virus vacc ine, unspecified formulation [facility] 06-21-2005 hepatitis B vaccine, adult dosage [facility] 06-16-2002 diphtheria and tetan us toxoids, adsorbed for pediatric use NA Cervino [facility] Payers Date Payer Category Payer Unknown [facility] [employer] PREFERRED [id number] 2011-2013 PPO [id number] 2002 Unknown [employer] [place] [employer] [address] [id number] 2002-2003 [address] [place] [address] Indemnity [id number] 1999 Unknown [place] PREF ERRED PRIMARY PLUSPOS [id number] 1999-2004 POS [id number] Social History Date Type Detail Facility Tobacco smoking stat [facility] Unknown if ever smoked [facility] Start: 1960 Sex Assigned At Not on file [facility] Start: 02-03-2013 Tobacco smoking stat [facility] Former smoker [facility] Start: 02-03-2013 Tobacco use and exposure Never used [facility] Start: 02-03-2013 Alcohol intake Current drinke r of alcohol (finding) [facility] Note 02-05-2013 Telephone Encounter - Derrick [...] Jaylene Rodrigez LPN documented in this encounter [facility] History of Past illness Narrative 05-04-2010 Note Date & Type Note Facility documented as of this encounter (statuses as of 10/05/2020) [facility] Evaluation note Note Date & Type Note Facility documented in this encounter [facility] History of Past Illness Problem Noted [...] FoundDocuments on File Type Date Recorded Patient Junior Project Coordinator Expl anation Advance Directive(s) Summary Purpose Family [...] or prosecute any alcohol or drug abuse [facility] the event this information is protected by the Federal Confidentiality of Alcohol and Drug Abuse Patient Records regulations: The Federal rules restrict any use of the information to criminally investigate or prosecute any alcohol or drug abuse patient.[facility] Reason for Visit (unrecogniz ed section and content) (unrecognized sect ion and content) No Status Records FoundNo Status Records Found INFORMATION SOURCE (unrecogn ized section and content) DATE CREATED AUTHOR AUTHOR'S ORGANIZ ATION 11/22/2022 [facility] FOR RECORDS PERTAINING TO PATIENTS WHO ARE [...] BE BASED ON THE PRIMARY CLINICAL RECORDS. [facility]. provides no warranty or guarantee of the accuracy or completeness of information in this document.
--- NOTE | 2023-07-23 07:26 | MRI_ITS ---
HISTORY: DDD. Pain right side neck, shoulder, head. TECHNIQUE: Multiplanar and multisequence MR images of the cervical spine were obtained without contrast. 273 images. COMPARISON: XR 08/09/2021, MR 04/04/2020. FINDINGS: VERTEBRAE: Vertebral body heights maintained. Degenerative bone marrow endplate changes at multiple levels particularly C3-4. Small subchondral cyst at the superior endplate of C7. VERTEBRAL ALIGNMENT: Chronic 2 mm retrolisthesis of C3-4. SPINAL CORD: Cervical cord signal and morphology within normal limits. SOFT TISSUES: No prevertebral fluid collection. INTERVERTEBRAL DISCS: C2-3: No significant posterior disc protrusion, central canal stenosis, or foraminal narrowing. C3-4: Mild disc bulge with uncovertebral and facet arthropathy resulting in moderate central canal stenosis and bilateral foraminal narrowing, slightly progressed from prior. C4-5: Mild disc bulge with uncovertebral and facet arthropathy resulting in mild central canal stenosis and mild-moderate left foraminal narrowing, similar to prior. C5-6: Mild posterior disc bulge osteophyte complex with uncovertebral and facet arthropathy resulting in mild central canal stenosis and moderate bilateral foraminal narrowing, similar to prior. C6-7: Mild posterior disc bulge osteophyte complex with uncovertebral and facet arthropathy resulting in minimal narrowing of the thecal sac, moderate left, and mild right foraminal narrowing, similar to prior. C7-T1: No significant posterior disc protrusion, central canal stenosis, or foraminal narrowing. MRI/Spine Cervical (Routine) IMPRESSION: Mild progression of multilevel degenerative disc disease as above. Electronically Signed: Annabelle Mello MD at 11:44 EST ,
== END | disposition home or self-care (01) ==
PROVIDERS: PCP Nurse Practitioner Family
DX: M50.30 Other cervical disc degeneration, unspecified cervical region (principal)
CPT/HCPCS: 72141

== ENCOUNTER → 2023-11-18 | Outpatient (CLI) | payer OTHER, SELFPAY ==
[2023-11-18 15:26] LABS: Uric Acid 7.5 mg/dL (3.5-7.2)
== END | disposition home or self-care (01) ==
LOC: LAB 13:37
PROVIDERS: PCP Nurse Practitioner Family; Referring Provider Nurse Practitioner Family; Visit Provider Nurse Practitioner Family
DX: M10.9 Gout, unspecified (principal)
CPT/HCPCS: 36415; 84550

== ENCOUNTER → 2023-11-21 | Outpatient (CLI) | payer OTHER, SELFPAY ==
--- NOTE | 2023-11-21 13:00 | RAD_ITS ---
EXAM: XR RIGHT FOOT COMPLETE, 3 OR MORE VIEWS CLINICAL INDICATION: Hallux rigidus, right foot TECHNIQUE: Frontal, lateral and oblique views of the right foot. COMPARISON: 09/23/2020 FINDINGS: BONES/JOINTS: Unremarkable. No acute fracture. No subluxation. Normal alignment. Preservation of the joint space. No sclerotic or destructive changes observed. SOFT TISSUES: Unremarkable. No soft tissue swelling or gas. No radiopaque foreign body. RAD/Foot min 3 Views IMPRESSION: Degenerative changes with narrowing of the first metatarsophalangeal joint. There are no acute osseous abnormalities. There has been no significant change from the reference exam. Electronically Signed: Murtaza Miranda MD at 0:15 EDT ,
== END | disposition home or self-care (01) ==
LOC: RAD.FUTURE 12:55 → RAD 12:56
PROVIDERS: PCP Nurse Practitioner Family; Referring Provider Podiatrist; Visit Provider Podiatrist
DX: M20.21 Hallux rigidus, right foot (principal)
CPT/HCPCS: 73630

== ENCOUNTER 2024-04-09 09:25 | Day surgery (SDC) | payer OTHER, SELFPAY ==
[2024-04-09] VITALS (10 sets, daily range): BP systolic 88–124; BP diastolic 61–84; PULSE 61–81; RESP 12–16; TEMP 36.3–36.6; O2SAT 98–100; BMI 20.7
--- NOTE | 2024-04-09 | IMM_PTH ---
PATHOLOGY RESULTS PATIENT: BRIANA BURTON LOC: EN U#:[id number] AGE/SX: 63/M ROOM: RE04/09/[address]: Dr. Wang Amaya MD : 1960 BED: DIS: 04/09/2024 SPEC #: [id number] RECD: 04/12/24 10:26 STATUS: SHAHEEN REQ #: [id number] NAIMA: 04/09/24 00:[address]: Wang Amaya DEPT: IMMUNOHISTOCHEMISTRY RECD BY: Remington Torres ENTERED: 04/12/24 10:26 SP TYPE: IMMUNO OTHR DR: Shelia Jimenez, AUTOMOTIVE SERVICE CASHIER-C Tissues: Gastric mucous membrane Procedures: P53 (initial) KI-67 (add) PHYSICIAN & INSTITUTION [address] [address] SPECIMEN INFORMATION: Tissue Source: Gastroesophageal junction biopsy Clinical Info: Positive colorectal cancer screening using Cologuard test, dysphagia Specimen Number: [id number] CPT code: 59187,60378 METHODOLOGY: Deparaffinized sections of prefer/formalin-fixed tissue or PAP/DQ stained slides are incubated with monoclonal/polyclonal antibodies/oligonucleotide probes. Localization is made via biotin free immunoperoxidase method. Appropriate controls are performed and reacted as expected. Results on target cell population are indicated in the following table: RESULTS: ANTIBODY / CLONE RESULT P53 (DO-7) negative (null pattern) Ki-67 (30-9) positive, very low These tests were developed and their performance characteristics determined by [facility]. They may not have been cleared or approved by the U.S. Food and Drug Administration. The FDA has determined that such clearance or approval is not necessary. The above immunohistochemical/dualISH markers are ordered and reviewed by the Pathologist. INTERPRETATION: Gastroesophageal junction, biopsy: Negative for dysplasia. 04/13/2024
--- NOTE | 2024-04-09 10:12 | PCM.PRE.AN2 ---
ASA Classification* ASA Classification ASA Classification: 2 Assessment & Plan Anesthesia* Anesthesia Assessment Anesthesia Assessment: Discussed sedation and/or anesthesia options, risks, benefits, and alternatives with patient/parents/legal guardian/POA. Questions invited. The patient/parents/legal guardian/POA seems to understand and agrees to proceed with anesthesia plan. Reviewed the physical assessment, medical history, allergy history and patient home medications list prior to surgery/procedure/anesthetic and documented any changes. Performed airway and anesthesia risk assessments. Anesthesia Type Anesthesia Type: MAC Anesthesia Focused Assessment* Temperature: 97.9 F Pulse Rate: 81 Blood Pressure: 124/84 Respiratory Rate: 12 Pulse Ox: 100 Airway Assessment Mouth opens: >3 cm Mallampati Score: II Focused Labs Anesthesia Preop lab: CBC WBC 6.5 K/mm3 (4.4-11.0) 04/16/23 11:18 RBC 4.56 M/mm3 (4.6-6.2) L 04/16/23 11:18 Hgb 14.5 g/dL (13.0-16.5) 04/16/23 11:18 Hct 43.8 % (40-54) 04/16/23 11:18 Plt Count 211 K/mm3 (150-450) 04/16/23 11:18 CHEMISTRY Potassium 4.2 mmol/L (3.5-5.1) 04/16/23 11:18 Sodium 143 mmol/L (136-145) 04/16/23 11:18 Magnesium 2.3 mg/dL (1.6-2.6) 10/21/22 07:35 Phosphorus 3.6 mg/dL (2.5-4.9) 04/16/23 11:18 BUN 22 mg/dL (7-18) H 04/16/23 11:18 Creatinine 0.96 mg/dL (0.70-1.30) 04/16/23 11:18 Glucose 93 mg/dL (74-106) 04/16/23 11:18 TSH 2.64 uIU/mL (0.358-3.74) 01/20/21 08:57 COAG Pre-Assessment Diagnosis/Proposed Procedure Planned Operative Procedure(s): COLONOSCOPY, EGD Anesthesia History Anesthesia History - data entry coordinator: Anesthesia History - data entry coordinator Hx Hospitalization No 10/24/24 08:50 Any Problems With Anesthesia No 04/08/24 08:50 Cholinesterase deficiency No 04/08/24 08:50 You/Your Family Experience No 04/08/24 08:50 fever (hyperthermia) with Relationship Recent Exposure to Contagious No 04/09/24 09:42 Disease Does patient have nerve No 04/08/24 08:50 stimulator Patient instructed to have device shut off --Does patient have Pacemaker No 04/09/24 09:42 or ICD? When Was Last Pacemaker Check QUESTION #4 FULL TEXT: You/Your Family Experience fever (hyperthermia) with Anesthesia Last Oral Intake Last Oral intake: Last Oral Intake NPO since 00:00 04/09/24 09:42 Meds taken in AM with sips of water? Meds patient instructed to take am of surgery PONV PONV - data entry coordinator: PONV - data entry coordinator Female No 04/08/24 08:50 HX of Motion Sickness No 04/08/24 08:50 HX of N/V After Surgery No 04/08/24 08:50 Non-Smoker Yes 04/08/24 08:50 Duration of Surgery greater No 04/08/24 08:50 than 60 minutes Number of Risk Factors 1 04/08/24 08:50 PONV Score Low Risk 04/08/24 08:50 Height & Weight Height & Weight: Anesthesia: Height & Weight Height 6 ft 2 in 04/09/24 09:42 Weight: 73.1 kg 04/09/24 09:42 Body Mass Index (BMI) 20.7 04/09/24 09:42 Respiratory Assessment Respiratory Assessment - data entry coordinator: Respiratory Tract Infection Hx - data entry coordinator Hx Respiratory Tract Infection No 04/08/24 08:50 STOP Sleep Apnea STOP Sleep Apnea - data entry coordinator: STOP Sleep Apnea - data entry coordinator Hx Hypertension No 04/08/24 08:50 Hx Sleep Apnea No 04/08/24 08:50 CPAP BIPAP Do you snore loudly (louder No 04/08/24 08:50 than talking or can be heard Do you often feel tired/ No 04/08/24 08:50 fatigued/ sleepy during daytime? Has anyone observed you stop No 04/08/24 08:50 breathing during sleep? STOP Results Negative 04/08/24 08:50 QUESTION #5 FULL TEXT : Do you snore loudly (louder than talking or can be heard through closed doors)? Tobacco Use History Tobacco Use History - data entry coordinator: Tobacco Use History - data entry coordinator Tobacco Use Smoking Status Former smoker 04/08/24 08:50 Hx Tobacco Use No 04/08/24 08:50 Years Smoking Packs Smoked per Day Smoking Cessation Date was No - quit smoking greater 04/08/24 08:50 within the last 15 years than 15 years ago Hx Smoking Cessation Date 04/08/24 08:50 Hx Smoking Cessation Counseling Hematologic Medial History Hematologic Hx - data entry coordinator: Hematologic Medical Hx - production proofreader Hx of Blood Transfusion No 04/08/24 08:50 Hx of Transfusion in last 3 No 04/08/24 08:50 Months Date of Last Transfusion (if within last 3 months) Ever experience any problems No 04/08/24 08:50 with transfusion(s)? Specify any problems Hx of Preganancy in last 3 N/A 04/08/24 08:50 Months Nurse Filling Out Transfusion [id number] 04/08/24 08:50 & Questions: Date: 04/08/24 04/08/24 08:50 Time: 08:52 04/08/24 08:50 Patient unable to answer at this time (ie. confused, unrespo /Reproduction History /Reproductive History - data entry coordinator: /Reproductive Hx- data entry coordinator Hx Now Gestational Age (in weeks): EDC: Hx Hx Para Hx Section SAB PFSH Medical History Wears glasses Gout Former smoker Hx of nasal polyp Chronic neck pain Foraminal stenosis of cervical region Basal cell carcinoma Home Medications ?Medication ?Instructions ?Recorded ?Last Taken ?Type cholecalciferol (vitamin D3) 125 125 mcg PO DAILY 10/11/22 04/06/24 History mcg (5,000 unit) capsule diclofenac sodium 1 % topical gel 2 g topical ONCE 10/11/22 Unknown History (Arthritis Pain (diclofenac)) methocarbamol 750 mg tablet 750 mg PO Q6H PRN MUSCLE RELAXER 10/11/22 Unknown History turmeric root extract 500 mg tablet 500 mg PO DAILY 10/11/22 04/03/24 History Allergy/AdvReac Type Severity Reaction Status Date / Time No Known Allergies Allergy Verified 04/09/24 09:41 Family History Father Glioblastoma CAD (coronary artery disease) Surgical History History of open reduction and internal fixation (ORIF) procedure Hx of tonsillectomy History of nasal septoplasty History of colonoscopy Social History household members: spouse current occupational status: employed Smoking Status: Former smoker alcohol intake: never Review of Systems (Anesthesia) ROS Narrative System reviewed and no additional complaints, except as documented.
--- NOTE | 2024-04-09 10:25 | HP.PCM_ITS ---
History and Physical Date of Admission: 04/09/24 Intake Vital Signs 06/28/2408:14 08/24/2413:08 Height 6 ft 2 in 6 ft 2 in Weight: 185 lb BMI 23.7 BP 108/68 Blood Pressure Location Rt brachial Position Sitting Respiration 17 Pulse 71 Pulse Source Monitor Pulse Oximetry (%) 97 Oxygen Delivery Method room air Intake Visit Reasons: POSITIVE COLOGUARD Chief Complaint: positive cologuard Is patient in pain?: Yes Allergies No Known Allergies Allergy (Verified 08/25/23 14:10) Medications acyclovir 400 mg tablet 400 mg PO TID PRN 10/11/22 [History Confirmed 08/25/23] cholecalciferol (vitamin D3) 125 mcg (5,000 unit) capsule 125 mcg PO DAILY 10/11/22 [History Confirmed 08/25/23] diclofenac sodium 1 % topical gel (Arthritis Pain (diclofenac)) 2 g topical ONCE 10/11/22 [History Confirmed 08/25/23] methocarbamol 750 mg tablet 750 mg PO Q6H PRN 10/11/22 [History Confirmed 08/25/23] turmeric root extract 500 mg tablet 500 mg PO DAILY 10/11/22 [History Confirmed 08/25/23] esomeprazole magnesium 20 mg capsule,delayed release 20 mg PO DAILY 08/25/23 [History Confirmed 08/25/23] PFSH Medical History Basal cell carcinoma Chronic neck pain Foraminal stenosis of cervical region Hx of nasal polyp Surgical History History of colonoscopy History of nasal septoplasty History of open reduction and internal fixation (ORIF) procedure Hx of tonsillectomy Family History Father Glioblastoma CAD (coronary artery disease) Social History (Updated 08/25/23 @ 14:08 by Nancy Greene) household members: spouse current occupational status: employed Smoking Status: Former smoker alcohol intake: never HPI HPI HPI: Patient is a 62-year-old male here for positive Cologuard. The patient denies any abdominal pain or blood in his stool. He also reports he has been having some dysphagia. Patient reports that he does not have frequent GERD. He has not had a colonoscopy. ROS General General: No weight change, appetite, fatigue, colon cancer, breast cancer or weakness HEENT HEENT: Yes difficulty swallowing; No eye injury, eye surgery, swollen glands or hoarseness Endo Endocrine: No thyroid disease, diabetes mellitus, thyroid cancer, Hair loss, heat intolerance or cold intolerance Skin Skin: No rash or changing moles Musc Musculoskeletal: Yes gout; No back problems, arthritis, rheumatoid arthritis or joint pain Cardio Cardiovascular: No murmur, pacemaker, heart disease, atrial fibrillation, high blood pressure, heart attack, heart stent, palpitations, shortness of breat with exertion or chest pain Psych Psychiatric: No depression, anxiety or hearing voices Resp Respiratory: No shortness of breath, No sleep apnea, No cough, No COPD, No asthma, No emphysema and No wheezing Gastro Gastrointestinal: No abdominal pain, No nausea or vomiting, No diarrhea, No constipation, No blood in stool, Yes acid reflux, No hemorrhoids, No ulcers, No gallbladder problem and No black,tarry stools Uday Hematologic: No blood thinners, No blood disorders, No bleeding, No anemia and No blood clots Neuro Neurologic: No system reviewed and no additional complaints, except as documented, No as per HPI, No abnormal gait, No abnormal hearing, No abnormal movements, No abnormal speech, No behavioral changes, No burning sensations, No confusion, No convulsions, No disequilibrium, No dizziness, No localized weakness, No frequent falls, No headache(s), No lack of coordination, No loss of vision, No memory loss, No numbness, No other visual disturbances, No radicular pain, No restless legs, No sensory deficit, No syncope, No tingling, No tremor(s), No weakness and No other Exam Const General: cooperative Orientation: alert and oriented x3 HENWA Head: normal to inspection Neck Neck: normal visual inspection and full ROM Chest Chest palpation & inspection: normal inspection of the chest Resp Effort & Inspection: normal respiratory effort Auscultation: clear to auscultation bilaterally Cardio Rate: regular rate Rhythm: regular rhythm GI Inspection: non-distended Palpation: soft and nontender Skin General: no rashes or lesions noted Neuro General: patient alert and patient oriented x3 Extrem General: full ROM Psych Appearance: grossly normal Mental Status: mental status grossly normal Assessment and Plan Assessment and Plan (1) Positive colorectal cancer screening using Cologuard test: Status: Acute (2) Dysphagia: Status: Acute Orders: Orders Colonoscopy Today EGD Today Plan The patient reports that he is feeling dry things especially breads getting stuck in his esophagus. The patient also requires colonoscopy for positive Cologuard. I explained endoscopy in detail to the patient. I explained the risks including but not limited to stroke or heart attack with anesthesia, perforation of the GI tract, bleeding, infection. I explained that any of these could necessitate further emergency surgery. The patient understands and all questions were answered sufficiently. The patient wishes to proceed with procedure. I discussed the increased risk of perforation and bleeding with dilation. Patient will hold his turmeric for 5 days before surgery Wang Amaya MD Pager: [facility] [address] [place] [address], [address] [place] [address] Office: I have examined the patient and the H&P has been reviewed. There are no clinical changes since date of exam.
--- NOTE | 2024-04-09 10:30 | COLBX_PTH ---
PATHOLOGY RESULTS PATIENT: BRIANA BURTON LOC: EN U#:[id number] AGE/SX: 63/M ROOM: RE04/09/[address]: Dr. Wang Amyaa MD : 1960 BED: DIS: 04/09/2024 SPEC #: [id number] RECD: 04/09/24 12:02 STATUS: SHAHEEN JOSE FRANCISCO #: [id number] NAIMA: 04/09/24 10:[address]: Wang Amaya DEPT: SURGICAL PATHOLOGY RECD BY: Nas Hurtado ENTERED: 04/09/24 12:56 SP TYPE: COLON BX OTHR DR: Shelia Jimenez, GLASS ENAMEL MIXER-C Tissues: Gastric mucous membrane Procedures: Special Stain Group I Surgery Specimen Level IV Alcian Blue/PAS (control) HEADER OPERATION: Colonoscopy, EGD with biopsy PRE-OP DIAGNOSIS: Positive colorectal cancer screening using Cologaurd test, dysphagia TISSUE SUBMITTED: Gastroesophageal junction biopsy MICROSCOPIC DIAGNOSIS Gastroesophageal junction, biopsy: Fragments of gastroesophageal mucosa with focal 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 Chronic inflammation. Negative for dysplasia. See comment. 04/12/2024 COMMENT Immunohistochemistry ([id number]) for P53 and Ki-67 will be performed and results will be reported separately. Alcian blue/PAS stain with matched control is used in the evaluation of the specimen. MICROSCOPIC DESCRIPTION Slides are reviewed. GROSS DESCRIPTION Received in fixative is one container labeled with the patient's name and designated GE junction biopsy. The specimen consists of multiple irregular fragments of light villasenor soft tissue that in aggregate measure 0.7 x 0.2 x 0.1 cm. The specimen is totally submitted in one cassette. 04/09/2024 TC:5 CPT:22200,476260
--- NOTE | 2024-04-09 11:07 | OP.EGD_ITS ---
Patient Name: Jamey Jacobsen Procedure Date: 04/09/2024 10:31 AM Date of : 1960 Age: 63 Procedure: Upper GI endoscopy Indications: Heartburn, Esophageal reflux Providers: Wang Amaya MD Referring MD: Rosalie Paul Medicines: Propofol per Anesthesia Patient Profile: This is a 63 year old male. Refer to note in patient chart for documentation of history and physical. Complications: No immediate complications. Estimated blood loss: Minimal. Procedure: Pre-Anesthesia Assessment: - Prior to the procedure, a History and Physical was performed, and patient medications and allergies were reviewed. The patient's tolerance of previous anesthesia was also reviewed. The risks and benefits of the procedure and the sedation options and risks were discussed with the patient. All questions were answered, and informed consent was obtained. Prior Anticoagulants: The patient has taken no anticoagulant or antiplatelet agents. After reviewing the risks and benefits, the patient was deemed in satisfactory condition to undergo the procedure. After obtaining informed consent, the endoscope was passed under direct vision. Throughout the procedure, the patient's blood pressure, pulse, and oxygen saturations were monitored continuously. The Endoscope was introduced through the mouth, and advanced to the third part of duodenum. The upper GI endoscopy was accomplished without difficulty. The patient tolerated the procedure well. Scope In: 10:41:15 AM Scope Out: 10:45:27 AM Total Procedure Duration Time 0 hours 4 minutes 12 seconds Findings: LA Grade B (one or more mucosal breaks greater than 5 mm, not extending between the tops of two mucosal folds) esophagitis with no bleeding was found in the lower third of the esophagus. Biopsies were taken with a cold forceps for histology. The stomach was normal. The examined duodenum was normal. A small hiatal hernia was present. Impression: - LA Grade B chronic esophagitis with no bleeding. Rule out Alvarez's esophagus. Biopsied. - Normal stomach. - Normal examined duodenum. - Small hiatal hernia. Recommendation: - Discharge patient to home. - Resume previous diet. - Continue present medications. Procedure Code(s): --- Professional --- 21621, Esophagogastroduodenoscopy, flexible, transoral; with biopsy, single or multiple Diagnosis Code(s): --- Professional --- K20.90, Esophagitis, unspecified without bleeding K44.9, Diaphragmatic hernia without obstruction or gangrene R12, Heartburn K21.9, Gastro-esophageal reflux disease without esophagitis CPT copyright 2021 [employer]. All rights reserved. The codes documented in this report are preliminary and upon label coder review may be revised to meet current compliance requirements. Wang Amaya MD 04/09/2024 11:07:16 AM This report has been signed electronically. Number of Addenda: 0 Note Initiated On: 04/09/2024 10:31 AM
--- NOTE | 2024-04-09 11:08 | OP.CCLET_ITS ---
04/09/2024 Rosalie Paul Re : Upper GI endoscopy procedure for Jamey Fuentesr Tony This procedure was performed on Tuesday, April 09, 2024. My impressions and recommendations are as follows: Impressions : - LA Grade B chronic esophagitis with no bleeding. Rule out Alvarez's esophagus. Biopsied. - Normal stomach. - Normal examined duodenum. - Small hiatal hernia. Recommendations : - Discharge patient to home. - Resume previous diet. - Continue present medications. My findings are described in the full procedure note, which is enclosed. If I can be of further assistance, please feel free to contact me at Doctor phone number(s): , Work: . Sincerely, Wang Amaya MD 04/09/2024 11:07:16 AM This report has been signed electronically.
--- NOTE | 2024-04-09 11:09 | OP.COLON_ITS ---
Patient Name: Jamey Jacobsen Procedure Date: 04/09/2024 10:48 AM Date of : 1960 Age: 63 Procedure: Colonoscopy Indications: Positive Cologuard test Providers: Wang Amaya MD Referring MD: Rosalie Paul Medicines: Propofol per Anesthesia Patient Profile: This is a 63 year old male. Refer to note in patient chart for documentation of history and physical. Last Colonoscopy: more than 10 years ago. Complications: No immediate complications. Procedure: Pre-Anesthesia Assessment: - Prior to the procedure, a History and Physical was performed, and patient medications and allergies were reviewed. The patient's tolerance of previous anesthesia was also reviewed. The risks and benefits of the procedure and the sedation options and risks were discussed with the patient. All questions were answered, and informed consent was obtained. Prior Anticoagulants: The patient has taken no anticoagulant or antiplatelet agents. After reviewing the risks and benefits, the patient was deemed in satisfactory condition to undergo the procedure. After I obtained informed consent, the scope was passed under direct vision. Throughout the procedure, the patient's blood pressure, pulse, and oxygen saturations were monitored continuously. The Colonoscope was introduced through the anus and advanced to the cecum, identified by appendiceal orifice and ileocecal valve. The colonoscopy was performed without difficulty. The patient tolerated the procedure well. The quality of the bowel preparation was good. The ileocecal valve, appendiceal orifice, and rectum were photographed. Scope In: 10:49:26 AM Scope Withdrawal Time 0 hours 5 minutes 11 seconds Scope Out: 11:04:00 AM Total Procedure Duration Time 0 hours 14 minutes 34 seconds Findings: The entire examined colon appeared normal on direct and retroflexion views. Impression: - The entire examined colon is normal on direct and retroflexion views. - No specimens collected. Recommendation: - Discharge patient to home. - Resume previous diet. - Continue present medications. - Repeat colonoscopy in 10 years for screening purposes. Procedure Code(s): --- Professional --- 28030, Colonoscopy, flexible; diagnostic, including collection of specimen(s) by brushing or washing, when performed (separate procedure) Diagnosis Code(s): --- Professional --- R19.5, Other fecal abnormalities CPT copyright 2021 [employer]. All rights reserved. The codes documented in this report are preliminary and upon tunnel elastic operator chainstitch review may be revised to meet current compliance requirements. Wang Amaya MD 04/09/2024 11:09:12 AM This report has been signed electronically. Number of Addenda: 0 Note Initiated On: 04/09/2024 10:48 AM
--- NOTE | 2024-04-09 11:10 | OP.CCLET_ITS ---
04/09/2024 Rosalie Paul Re : Colonoscopy procedure for Jamey Fuentesr Tony This procedure was performed on Tuesday, April 09, 2024. My impressions and recommendations are as follows: Impressions : - The entire examined colon is normal on direct and retroflexion views. - No specimens collected. Recommendations : - Discharge patient to home. - Resume previous diet. - Continue present medications. - Repeat colonoscopy in 10 years for screening purposes. My findings are described in the full procedure note, which is enclosed. If I can be of further assistance, please feel free to contact me at Doctor phone number(s): , Work: . Sincerely, Wang Amaya MD 04/09/2024 11:09:12 AM This report has been signed electronically.
--- NOTE | 2024-04-09 11:12 | PCM.POST.ANE ---
Anesthesia: Postop Eval I Current Vital Signs Temperature: 97.3 F Pulse Rate: 62 Blood Pressure: 89/68 Respiratory Rate: 16 Pulse Ox: 99 Oxygen Delivery Method: Room Air Assessment Airway patent: Yes Spontaneous unlabored respirations: Yes Mental status: Asleep nausea: No Vomiting: No Anesthesia Complication: No Fluid Hydration Crystalloid volume administer (ml): 60 Total IV fluid infused: 60 Progress Note Anesthesia document: Postop Eval 1 completed: Yes
--- NOTE | 2024-04-09 15:47 | PCM.POSTANE2 ---
Anesthesia Postop Eval I Sum Postop Eval Completion status Anesthesia document: Postop Eval 1 completed: Yes Anesthesia Postop Eval I Summary Anesthesia Postop Eval I Summary: Anesthesia Postop Eval I: Assessment Summary Airway patent Yes 04/09/24 11:13 [email or web address] Spontaneous unlabored Yes 04/09/24 11:13 [email or web address] respirations Mental status Asleep 04/09/24 11:13 [email or web address] nausea No 04/09/24 11:13 [email or web address] Vomiting No 04/09/24 11:13 [email or web address] Anesthesia Postop Eval I: Fluid Summary Crystalloid volume administer 60 04/09/24 11:13 [email or web address] (ml) Colloids volume administered ( ml) Blood Product volume administered (ml) Total IV fluid infused 60 04/09/24 11:13 [email or web address] Anesthesia Postop Eval I: Summary Notes Anesthesia Complication No 04/09/24 11:13 [email or web address] Anesthesia Complication Comment: Post-operative progress note Anesthesia: Postop Eval II Evaluation Mental status: Awake and Calm Pain Level: 0 nausea: No Vomiting: No Complications Anesthesia Complication: No
== END 2024-04-09 12:05 | disposition home or self-care (01) ==
LOC: EN 09:26 → AC 09:27
PROVIDERS: PCP Nurse Practitioner Family; Referring Provider Nurse Practitioner Family; Visit Provider Surgery
PROC: 0DJD8ZZ Inspection of Lower Intestinal Tract, Via Natural or Artificial Opening Endoscopic (ICD-10-PCS; CPT 45378; principal; 2024-04-09 10:25)
DX: R19.5 Other fecal abnormalities (principal); K44.9 Diaphragmatic hernia without obstruction or gangrene; Z87.891 Personal history of nicotine dependence; R13.10 Dysphagia, unspecified; K22.70 Barrett's esophagus without dysplasia
CPT/HCPCS: 43239; 88305; 88312; 88341; 88342; A4216; J2405

== ENCOUNTER → 2024-04-16 | Outpatient (CLI) | payer OTHER, SELFPAY ==
[2024-04-16 12:16] LABS: Uric Acid 6.2 mg/dL (3.5-7.2)
== END | disposition home or self-care (01) ==
PROVIDERS: PCP Nurse Practitioner Family; Referring Provider Podiatrist; Visit Provider Podiatrist
DX: M10.9 Gout, unspecified (principal)
CPT/HCPCS: 36415; 84550

== ENCOUNTER 2024-06-03 15:54 | Outpatient (CLI) | payer SELFPAY | END 2024-06-03 23:59 | disposition home or self-care (01) | PROVIDERS: PCP Nurse Practitioner Family; Referring Provider Nurse Practitioner Family; Visit Provider Nurse Practitioner Family | DX: E66.9 Obesity, unspecified (principal); Z68.22 Body mass index [BMI] 22.0-22.9, adult | CPT/HCPCS: 76499 ==

== ENCOUNTER → 2025-01-28 | Outpatient (CLI) | payer OTHER, SELFPAY ==
[2025-01-28 12:02] LABS: Cholesterol 150 mg/dL (<=200); Low Density Lipoprotein Calc. 89 mg/dL; Magnesium 2.1 mg/dL (1.5-2.2); PSA,Total - Annual Screen 1.45 ng/mL (0.02-4.00); Triglycerides 51 mg/dL; Very Low Density Lipoprotein 10 mg/dL (5-40); cholesterol:hdl ratio screen 2.94
== END | disposition home or self-care (01) ==
PROVIDERS: PCP Nurse Practitioner Family; Referring Provider Nurse Practitioner Family; Visit Provider Nurse Practitioner Family
DX: Z12.5 Encounter for screening for malignant neoplasm of prostate (principal); E78.5 Hyperlipidemia, unspecified; E61.2 Magnesium deficiency
CPT/HCPCS: 36415; 80061; 83735; 84153; 84403; 84439; 84443; G0103

== ENCOUNTER 2025-06-02 07:30 | Outpatient (RCR) | payer OTHER, SELFPAY ==
--- NOTE | 2024-10-14 13:08 | HP.PTEVAL_ITS ---
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 Date of Evaluation: 10/14/24 Physical Therapist: Kim Johnson Visit Plan Frequency: Every Other Week Duration: 4 Months Plan: Continue once every 2 weeks. Try dry needling and traction next visit. Subjective Subjective: He is dealing with chronic cervical pain since 2005. He has managed with PT at a facility in [place]. He is feeling increased pain for about 10 days. He would rate the pain 7/10. Very tight. He had an ablation about 4 month ago (in May) and he thinks that has worn off. Epidural later today to hopefully get him to his next ablation. MRI showed spinal stenosis from C4, C5, C6. He notices increased pain with sitting even more than 30-60 minutes. 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 Headaches 3 days in about 10 days. Friday and Friday he noticed pain that radiated into the right arm all the way into the hand (4-5/10 in the upper arm and dissipates as it radiates down to the hand.) Getting up in the morning he has stiffness but not having trouble sleeping. MRI shows multiple mild disc bulges and stenosis with foraminal narrowing. Pain cervical: Pain Intensity (Out of 10): 7 Pain Intensity Range: 9 Objective Objective: Cervical range of motion: Flexion 42 pain Extension 32 pain Right SB 21 Left SB 34 tightness Right ROT 62 pain Left ROT 50 UE strength: 4/5 Right rotation C4-C6 , moderate right cervical tightness and tenderness , tender and tight in right suboccipitals Balance/Special Test Scores Oswestry Neck Score: 13 Goals Goal 1:: Briana will be able to tolerate sitting up to 2 hours at a time to do his job duties without feeling neck pain. Goal Time Frame: 12-16 Weeks Goal 2:: Briana will be able to perform yardwork activities with 2/10 neck pain during and after. Goal Time Frame: 12-16 Weeks Goal 3:: Briana will have full cervical range of motion allowing him to drive painfree. Goal Time Frame: 12-16 Weeks Goal 4:: Briana will be able to look down for a period of 1 hour at his phone or to read without neck pain during or after. Goal Time Frame: 12-16 Weeks Goal 5:: Briana will be able to lift medium weight objects with 2/10 neck pain during or after. Goal Time Frame: 12-16 Weeks Rehabilitation Potential Physical Therapy Diagnosis: Cervicalgia Rehabilitation Potential: Good Anticipated Interventions Patient/Client Instruction: Educate patient on: Condition and Plan of Care For the Purpose of:: To decrease pain, To increase ROM, To improve health and function, To improve self management and To improve tolerance to ADL's Therapeutic Exercise to Include: Strength training, Body mechanics and Postural training For the Purpose of:: To decrease pain, To improve muscle performance and motor function, To improve ability to perform ADL's, To increase tolerance to activity/condition/position and To improve self management Manual Therapy Techniques to Include: Trigger point massage, Mobilization, Functional dry needling and Soft tissue mobilization For the Purpose of:: To decrease pain, To improve muscle performance and motor function, To improve health and function and To improve self management Ultrasound (thermal/non thermal): Yes Intermittent cervical traction: Yes For the Purpose of:: To decrease pain, To improve health and function and To improve self management Text: Thank you for the opportunity to evaluate your patient. For Medicare and Medicare HMO plans, please review the plan of care and approve it. It will need to be FAXED BACK to us at [phone] for Medicare purposes. For Medicare only, by signing this I certify the plan of care. Please let me know if there are questions or concerns regarding this plan of car e. Physician Signature: Date:
== END 2025-06-02 19:00 | disposition home or self-care (01) ==
LOC: PT 07:30
PROVIDERS: PCP Nurse Practitioner Family; Referring Provider Nurse Practitioner Family; Visit Provider Nurse Practitioner Family
DX: M48.02 Spinal stenosis, cervical region (principal)
CPT/HCPCS: 97012; 97110; 97112; 97140; 97162